=== PATIENT | female | born 1970 | race Caucasian/White ===

== ENCOUNTER → 2021-08-29 | Outpatient (CLI) | payer BC ==
--- NOTE | 2021-09-06 11:34 | HM ---
This is a report on the 48-hour Holter monitor. Baseline rhythm is sinus. Patient remained in sinus rhythm throughout the recording with an average heart rate of about 77 bpm the minimum is 50 and the maximum 727. Occasional APCs and occasional PVCs were noted. One brief episode of SVT consisting of 4 beats at a rate of 149. No other sustained arrhythmias. Patient did not maintain a diary. Final impression: #1. Sinus rhythm. #2. Occasional APCs. #3. Occasional PVCs #4. Brief episode of SVT consisting of 4 beats. #5. Patient did not maintain a diary. MTDD
== END | disposition home or self-care (01) ==
LOC: RADECHMAIN 08:03
PROVIDERS: ATTEND Family Medicine
DX: I49.3 Ventricular premature depolarization (principal); I47.1 Supraventricular tachycardia
CPT/HCPCS: 93225; 93226

== ENCOUNTER → 2021-08-31 | Outpatient (CLI) | payer BC ==
--- NOTE | 2021-08-31 17:25 | ECHOF ---
Referral Reason:Palpitations R00.2 MEASUREMENTS -------- HEIGHT: 160.0 cm WEIGHT: 90.7 kg BP: RVIDd: 3.1 cm (< 3.3) IVSd: 1.2 cm (0.6 - 1.1) LVIDd: 4.0 cm (3.9 - 5.3) LVPWd: 1.3 cm (0.6 - 1.1) IVSs: 2.3 cm LVIDs: 2.2 cm LVPWs: 1.8 cm Ao Diam: 3.0 cm (2.0 - 3.7) AV Cusp: 2.4 cm (1.5 - 2.6) LA Diam: 3.4 cm (2.7 - 3.8) MV EXCURSION: 15.965 mm (> 18.000) MV EF SLOPE: 116 mm/s (70 - 150) EPSS: 0.9 cm MV E Xavi: 0.71 m/s MV DecT: 155 ms MV A Xavi: 0.58 m/s MV E/A Ratio: 1.22 RAP: 5.00 mmHg RVSP: 19.14 mmHg FINDINGS -------- Sinus rhythm. This was a technically adequate study. The left ventricular size is normal. Left ventricular wall thickness is normal. Overall left vent ricular systolic function is normal with, an EF between 55 - 60 %. The right ventricle is normal in size. The left atrial size is normal. The right atrial size is normal. The aortic valve is trileaflet, and appears structurally normal. No aortic stenosis or regurgitation. The mitral valve is normal. There is trace mitral regurgitation. The tricuspid valve appears structurally normal. Trace tricuspid regurgitation present. Right betty tricular systolic pressure is normal at < 35 mmHg. There is no pulmonic regurgitation present. The aortic root size is normal. Normal inferior vena cava with normal inspiratory collapse consistent with estimated right atrial pre ssure of 5 mmHg. There is no pericardial effusion. CONCLUSIONS -------- 1. Left ventricular wall thickness is normal. 2. Overall left ventricular systolic function is normal with, an EF between 55 - 60 %. 3. The aortic valve is trileaflet, and appears structurally normal. No aortic stenosis or regurgitati on. 4. There is trace mitral regurgitation. 5. Trace tricuspid regurgitation present. 6. There is no pericardial effusion. TACO MAKER: Anjelica Alston RDCS
== END | disposition home or self-care (01) ==
LOC: RADECHMAIN 14:45
PROVIDERS: ATTEND Family Medicine
DX: I08.1 Rheumatic disorders of both mitral and tricuspid valves (principal)
CPT/HCPCS: 93306

== ENCOUNTER → 2023-08-04 | Outpatient (CLI) | payer OTHER ==
--- NOTE | 2023-08-06 11:41 | US ---
EXAMINATION TYPE: US abdomen complete DATE OF EXAM: 08/04/2023 COMPARISON: NONE CLINICAL INDICATION: Female, 53 years old with history of R10.11 R UP QUAD PAIN R18.84 GENERAL ABD PA IN; TECHNIQUE: Multiple sonographic images of the abdomen are obtained. FINDINGS: EXAM MEASUREMENTS: Liver Length: 18.1 cm Gallbladder Wall: 0.24 cm CBD: 0.35 cm Spleen: 10.3 x 10.3 x 4.1 cm Right Kidney: 9.7 x 3.7 x 4.1 cm Left Kidney: 11.5 x 5.6 x 4.9 cm SERVICES ACCOUNT MANAGER NOTES: Pancreas: Tail obscured by overlying bowel gas Liver: Hepatomegaly; increased echogenicity; possible focal fatty sparing Gallbladder: wnl Evidence for sonographic Dumont's sign: No CBD: wnl Spleen: wnl Right Kidney: Loss of cortical-medullary differentiation Left Kidney: wnl Upper IVC: wnl Abd Aorta: wnl The intrahepatic portion of the IVC and proximal abdominal aorta are within normal limits. There is no evidence of cholelithiasis. Common bile duct is unremarkable. The visualized portions of the hutson creas are homogenous. The spleen is unremarkable. Kidneys are symmetric and free of hydronephrosis. No renal lesions are seen. IMPRESSION: Hepatomegaly with the underlying hepatic steatosis and areas of focal fatty sparing.
== END | disposition home or self-care (01) ==
LOC: RADUSWWP 07:04
PROVIDERS: ATTEND Family Medicine
DX: K76.0 Fatty (change of) liver, not elsewhere classified (principal); R16.0 Hepatomegaly, not elsewhere classified
CPT/HCPCS: 76700